=== PATIENT | female | born 1965 | race Caucasian/White ===

== ENCOUNTER 2022-12-31 16:16 | Outpatient (RCR) | payer OTHER, SELFPAY | END 2023-04-30 23:59 | disposition home or self-care (01) | PROVIDERS: Visit Provider Orthopaedic Surgery Sports Medicine | DX: M16.12 Unilateral primary osteoarthritis, left hip (principal); M25.552 Pain in left hip; Z51.89 Encounter for other specified aftercare | CPT/HCPCS: 97110; 97161 ==